=== PATIENT | female | born 1985 | race Caucasian/White ===

== ENCOUNTER 2020-06-05 08:27 | Emergency (ER) | payer MEDICAID, SELFPAY ==
[2020-06-05 08:30] VITALS: BP 112/67; PULSE 61; RESP 18; TEMP 35.3; O2SAT 99; BMI 35.5
--- NOTE | 2020-06-05 09:12 | ED.PSYCH ---
HPI - Psych General Chief Complaint: Psychiatric Symptoms Stated Complaint: si Time Seen by Provider: 06/05/20 09:10 Source: patient Mode of arrival: ambulatory Limitations: no limitations History of Present Illness HPI Narrative: Patient presents to the ED because she wants help. Patient states she has been feeling more depressed an anxious than usual. Patient states she has no reason to be depressed because she states she has everything she needs in life. Patient states in might be due to her having a new baby that is about 4-month-old. Patient states no actual suicide plan, but states she wants help and other day she woke up not wanting to be alive. Patient states she would not actually kill herself because she has young kids to live for. Patient states she has called [facility] and multiple times for help, but has been informed she is on the waiting list. Patient just wants outpatient therapist. Related Data Previous Rx's Medication Instructions Recorded hydroxyzine HCl 50 mg PO QID PRN #16 tab 06/05/20 nitrofurantoin monohyd/m-cryst 100 mg PO Q12H 7 Days #14 cap 06/05/20 [Macrobid] Allergies Allergy/AdvReac Type Severity Reaction Status Date / Time ibuprofen [From Motrin] AdvReac Unknown STOMACH Unverified 03/09/20 17:55 UPSET Review of Systems Review of Systems: Yes all other systems are reviewed and are negative Constitutional: Constitutional: Reports as per HPI and Reports no additional constitutional complaints Eyes: Eyes: Reports as per HPI and Reports no additional eye complaints ENT: Reports system reviewed and no additional complaints, except as documented and Reports as per HPI Cardiovascular: Cardiovascular: Reports as per HPI and Reports no additional cardiovascular complaints Respiratory: Respiratory: Reports as per HPI and Reports no additional respiratory complaints Gastrointestinal: Gastrointestinal: Reports as per HPI and Reports no additional gastrointestinal complaints Genitourinary: Genitourinary: Reports no additional female genitourinary complaints and Reports as per HPI Musculoskeletal: Musculoskeletal: Reports no additional musculoskeletal complaints and Reports as per HPI Neurologic: Reports system reviewed and no additional complaints, except as documented and Reports as per HPI Psychiatric: Psychiatric: Reports no additional psychiatric complaints, Reports as per HPI and Reports depression PMFSH Past Medical History Medical History ADD (attention deficit disorder) Asthma Social History Social History Alcohol intake: current Alcohol intake frequency: a few times a month Alcohol type: beer Smoking Status: Current every day smoker Smoked in Last 30 Days: Yes Use of substances other than those prescribed or required for medical reasons: No Advance Directives: No Advance Directives Information Provided: Yes Physical Exam Vital Signs: Vital Signs: Last Vital Signs Temp 98.4 F 06/05/20 09:16 Pulse 59 06/05/20 09:16 Resp 17 06/05/20 09:16 BP 114/68 06/05/20 09:16 Pulse Ox 97 06/05/20 09:16 Body Mass Index 35.5 Const: General: cooperative, healthy appearing, comfortable, no acute distress, well developed, alert, awake and Physically active Orientation/consciousness: patient oriented x3 HENMT: Head: Yes normal to inspection and Yes No palpable skull fracture present Eyes: General: appearance normal, both eyes and all related structures Neck: Neck: Yes normal visual inspection and Yes full ROM Chest: Chest palpation & inspection: normal inspection of the chest and normal palpation of entire chest wall Resp: Effort & Inspection: normal respiratory effort and able to speak in complete sentences Cardio: Jugular venous distension: no JVD Heart sounds: S1 normal heart sound present and S2 normal heart sound present GI: Inspection: Yes normal to inspection and No abdominal wall ecchymosis Palpation (GI): not firm, nontender, no guarding and not rigid : General: No CVA tenderness and Yes no CVA tenderness Back/Spine/Pelvis: Back: no CVA tenderness and No CVA tenderness Skin: General skin exam: no rashes or lesions noted Neuro: General: patient oriented x3, gait normal and CN's II-XI intact bilaterally Cranial nerves: Yes Bilaterally intact EOM present Extrem: General: Yes normal to inspection and Yes full ROM Psych: Appearance: grossly normal, well kempt and not disheveled Speech and movement: Normal speech and movement present Affect: normal affect Thought process: Normal thought process present Thought content: suicidality, no homicidality, no delusions and no hallucinations Insight: Good insight present (Psych) Course Course Course Narrative: Patient presently not suicidal but is seeking help. Patient will have labs drawn and have BHN evaluation. Patient herself states she takes Suboxone 8 sublingual twice a day. Patient states she did not take any today. Will give patient her dose. Reevaluation(s) Reevaluation #1: Patient was evaluated by care team consulted Felicia who also cooberates story that patient is not suicidal or homicidal. Patient has no plan to kill herself. patient just wanted outpatient therapy follow-up. Care consult Felicia organized outpatient therapist appointment for patient and and states patient is safe for discharge. Patient states she is not suicidal or homicidal and will follow up with outpatient therapists Time: 13:35 MDM - Psych MDM Narrative Medical decision making narrative: Depression Restraints Face to Face Assessment: Face to Face Assessment: Current Situation: After assessment of the patient, a review of the pertinent medical record and a discussion with nursing staff, I feel the patient requires a restrain intervention. Reaction To: [] Medical Condition: [] Behavioral State: [] Continued Need: [] Lab Data Result diagrams: 06/05/20 09:29 06/05/20 09:29 Labs: Lab Results 06/05/20 06/05/20 06/05/20 Range/Units 09:29 09:29 09:29 WBC 8.7 (4.8-10.8) X10*3/uL RBC 4.18 L (4.20-5.50) X10*6/uL Hgb 11.4 L (12.0-16.0) g/dl Hct 36.0 L (37-47) % MCV 86.1 (80-98) fL MCH 27.3 (27.0-33.0) pg MCHC 31.7 (31.0-35.0) g/dl RDW 15.0 (11.0-16.0) % Plt Count 387 (160-400) X10*3/uL MPV 10.2 (9.4-12.3) fL Immature Gran % (Auto) 0.3 (0.0-0.4) % Neut % (Auto) 72.2 (45-73) % Lymph % (Auto) 20.1 (20-40) % [place] % (Auto) 5.3 (2-11) % Eos % (Auto) 1.6 (0-4) % Baso % (Auto) 0.5 (0-2) % Lymph # (Auto) 1.8 (1.2-4.9) X10*3/uL [place] # (Auto) 0.5 (0.1-1.2) X10*3/uL Eos # (Auto) 0.1 (0.0-0.4) X10*3/uL Baso # (Auto) 0.0 (0.0-0.2) X10*3/uL Abs Immat Gran (auto) 0.03 (0.00-0.03) X10*3/uL Absolute Neuts (auto) 6.3 (2.0-8.3) X10*3/uL Absolute Nucleated RBC 0.000 (0.0-0.012) X10*3/uL Nucleated RBC % (auto) 0.0 (0.0-0.2) /100WBC PT 12.0 (10.8-13.0) SEC INR 1.0 (0.9-1.1) APTT 37.6 (24.1-38.0) SEC Sodium 141 (135-145) mmol/L Potassium 4.3 (3.3-5.1) mmol/l Chloride 105 (96-108) mmol/L Carbon Dioxide 30 H (22-29) mmol/L Anion Gap 10 L (12-20) BUN 8 L (9-16) mg/dL Creatinine 0.87 (0.5-1.4) mg/dL Estim Creat Clear Calc 109.6 Estimated GFR > 60 Random Glucose 109 (60-115) mg/dL Calcium 8.0 L (8.4-10.2) mg/dL Total Bilirubin 0.2 (0.0-1.0) mg/dL Direct Bilirubin < 0.2 (0.0-0.5) mg/dL AST 12 (5-31) U/L ALT 10 (0-31) U/L Alkaline Phosphatase 68 (39-117) U/L Total Protein 6.5 (6.5-8.0) g/dL Albumin 3.9 (3.5-5.0) g/dL Urine Color Urine Appearance Urine pH (5.0-8.0) Ur Specific [place] (1.005-1.025) Urine Protein (NEG-TRACE) MG/DL Urine Glucose (UA) (NEG) MG/DL Urine Ketones (NEG) MG/DL Urine Blood (NEG) Urine Nitrite Ur Leukocyte Esterase (NEG) Urine RBC (0) /HPF Urine WBC (0-4) /HPF Ur Squamous Epith Cells /LPF Urine Bacteria /LPF Urine Test (NEGATIVE) Urine Opiates Screen (Not Detect) Ur Barbiturates Screen (Not Detect) Ur Phencyclidine Scrn (Not Detect) Ur Amphetamines Screen (Not Detect) U Benzodiazepines Scrn (Not Detect) Urine Cocaine Screen (Not Detect) U Marijuana (THC) Screen (Not Detect) Ethyl Alcohol mg/dL 06/05/20 06/05/20 06/05/20 Range/Units 09:29 10:39 10:39 WBC (4.8-10.8) X10*3/uL RBC (4.20-5.50) X10*6/uL Hgb (12.0-16.0) g/dl Hct (37-47) % MCV (80-98) fL MCH (27.0-33.0) pg MCHC (31.0-35.0) g/dl RDW (11.0-16.0) % Plt Count (160-400) X10*3/uL MPV (9.4-12.3) fL Immature Gran % (Auto) (0.0-0.4) % Neut % (Auto) (45-73) % Lymph % (Auto) (20-40) % [place] % (Auto) (2-11) % Eos % (Auto) (0-4) % Baso % (Auto) (0-2) % Lymph # (Auto) (1.2-4.9) X10*3/uL [place] # (Auto) (0.1-1.2) X10*3/uL Eos # (Auto) (0.0-0.4) X10*3/uL Baso # (Auto) (0.0-0.2) X10*3/uL Abs Immat Gran (auto) (0.00-0.03) X10*3/uL Absolute Neuts (auto) (2.0-8.3) X10*3/uL Absolute Nucleated RBC (0.0-0.012) X10*3/uL Nucleated RBC % (auto) (0.0-0.2) /100WBC PT (10.8-13.0) SEC INR (0.9-1.1) APTT (24.1-38.0) SEC Sodium (135-145) mmol/L Potassium (3.3-5.1) mmol/l Chloride (96-108) mmol/L Carbon Dioxide (22-29) mmol/L Anion Gap (12-20) BUN (9-16) mg/dL Creatinine (0.5-1.4) mg/dL Estim Creat Clear Calc Estimated GFR Random Glucose (60-115) mg/dL Calcium (8.4-10.2) mg/dL Total Bilirubin (0.0-1.0) mg/dL Direct Bilirubin (0.0-0.5) mg/dL AST (5-31) U/L ALT (0-31) U/L Alkaline Phosphatase (39-117) U/L Total Protein (6.5-8.0) g/dL Albumin (3.5-5.0) g/dL Urine Color RED Urine Appearance TURBID Urine pH 8.0 (5.0-8.0) Ur Specific [place] 1.020 (1.005-1.025) Urine Protein 3+ H (NEG-TRACE) MG/DL Urine Glucose (UA) NEG (NEG) MG/DL Urine Ketones NEG (NEG) MG/DL Urine Blood 3+ H (NEG) Urine Nitrite TNP Ur Leukocyte Esterase 2+ H (NEG) Urine RBC TNTC H (0) /HPF Urine WBC 10-14 H (0-4) /HPF Ur Squamous Epith Cells 2+ /LPF Urine Bacteria NONE /LPF Urine Test NEGATIVE (NEGATIVE) Urine Opiates Screen Not Detected (Not Detect) Ur Barbiturates Screen Not Detected (Not Detect) Ur Phencyclidine Scrn Not Detected (Not Detect) Ur Amphetamines Screen POSITIVE H (Not Detect) U Benzodiazepines Scrn Not Detected (Not Detect) Urine Cocaine Screen Not Detected (Not Detect) U Marijuana (THC) Screen POSITIVE H (Not Detect) Ethyl Alcohol < 10 mg/dL Discharge Plan Discharge Clinical Impression: Depression, Acute anxiety Patient Disposition: Home, Self-Care Instructions: Urinary Tract Infection in Women (ED), Depression (ED), Anxiety (ED) Additional Instructions: Return to the ED for any suicidal/homicidal ideation, auditory/visual hallucinations, any physical complaints, or any other concerning symptoms. Prescriptions: New hydroxyzine HCl 50 mg tablet 50 mg PO QID PRN (Reason: anxiety) Qty: 16 RF: 0 nitrofurantoin monohyd/m-cryst [Macrobid] 100 mg capsule 100 mg PO Q12H 7 Days Qty: 14 RF: 0 Referrals: [facility] [Provider Group] - 2 days (Anxiety and depression. Outpatient therapist follow-up.) Ana Torres MD [Primary Care Provider] - 2 days (Patient has referral and appointment for outpatient therapist) Interventions: ED Discharge Assessment Last Done: 06/05/20 14:14 Discharge Date/Time: 06/05/20 14:30 Print Language: Armenian
[2020-06-05 09:16] VITALS: BP 114/68; PULSE 59; RESP 17; TEMP 36.9; O2SAT 97
[2020-06-05 09:35] LABS: MANUAL DIFF FLAG NO
[2020-06-05 09:36] LABS: Basophils Percent Auto 0.5 % (0-2); Eosinophils Absolute Auto 0.1 X10*3/uL (0.0-0.4); Eosinophils Percent Auto 1.6 % (0-4); Hemoglobin 11.4 g/dl (12.0-16.0); Imm Gran Abs Auto 0.03 X10*3/uL (0.00-0.03); Imm Gran Pct Auto 0.3 % (0.0-0.4); Lymphocytes Absolute Auto 1.8 X10*3/uL (1.2-4.9); Lymphocytes Percent Auto 20.1 % (20-40); Mean Corpuscular HGB Conc 31.7 g/dl (31.0-35.0); Mean Corpuscular Hemoglobin 27.3 pg (27.0-33.0); Mean Corpuscular Volume 86.1 fL (80-98); Mean Platelet Volume 10.2 fL (9.4-12.3); Monocytes Absolute Auto 0.5 X10*3/uL (0.1-1.2); Monocytes Percent Auto 5.3 % (2-11); Neutrophils Absolute Auto 6.3 X10*3/uL (2.0-8.3); Neutrophils Percent Auto 72.2 % (45-73); Platelet Count 387 X10*3/uL (160-400); Red Blood Count 4.18 X10*6/uL (4.20-5.50); White Blood Count 8.7 X10*3/uL (4.8-10.8)
[2020-06-05] MEDS: Buprenorphine/Naloxone 8/2 mg FILM 1 FILM SUBLINGUAL (09:43)
[2020-06-05 09:45] LABS: Partial Thromboplastin Time 37.6 SEC (24.1-38.0)
[2020-06-05 09:58] LABS: Ethanol < 10 mg/dL
[2020-06-05 10:01] LABS: Alanine Aminotransferase 10 U/L (0-31); Albumin Level 3.9 g/dL (3.5-5.0); Alkaline Phosphatase 68 U/L (39-117); Anion Gap 10 (12-20); Aspartate Amino Transferase 12 U/L (5-31); Bilirubin Direct < 0.2 mg/dL (0.0-0.5); Bilirubin Total 0.2 mg/dL (0.0-1.0); Blood Urea Nitrogen 8 mg/dL (9-16); Carbon Dioxide 30 mmol/L (22-29); Chloride 105 mmol/L (96-108); Creatinine Clr Calc Pharmacy 109.6; Estimated Glomerular Filt Rate > 60; Glucose Random 109 mg/dL (60-115); Potassium 4.3 mmol/l (3.3-5.1); Sodium 141 mmol/L (135-145); Total Protein 6.5 g/dL (6.5-8.0)
[2020-06-05 11:08] LABS: Glucose Urine UA NEG (NEG); Urine Blood 3+ (NEG); Urine Ketones NEG (NEG); Urine Protein 3+ MG/DL (NEG-TRACE)
[2020-06-05 11:15] LABS: Appearance Urine TURBID; Color Urine RED
[2020-06-05 11:21] LABS: Leukocyte Esterase Urine 2+ (NEG)
[2020-06-05 11:26] LABS: Amphetamine Screen Urine POSITIVE (Not Detect); Barbiturates, Urine Not Detected (Not Detect); Benzodiazepines Screen Urine Not Detected (Not Detect); Cannabinoid Screen Urine POSITIVE (Not Detect); Cocaine Screen Urine Not Detected (Not Detect); Opiate Screen Urine Not Detected (Not Detect); Phencyclidine Screen Urine Not Detected (Not Detect); RBC Urine TNTC /HPF (0); Squamous Epithelial Cell Urine 2+ /LPF
[2020-06-05 11:27] LABS: UPreg QC Valid YES; Urine Pregnancy NEGATIVE (NEGATIVE)
--- NOTE | 2020-06-05 12:05 | PC.NURSE ---
PT asked when she would be seen by N because she has children at home and her works night shift manager. CARE team was called to ask about available services the PT may receive from home.
--- NOTE | 2020-06-05 13:10 | MHC.CARE ---
CARE Team met with who presented to [facility] ED reporting depression. Pt reports she presented to [facility] ED hoping it would help expedite the process of seeing a therapist. Pt reports she has everything in her life to be happy about however has been feeling more depressed than usual and attributing it to depression. Pt reports some mood irritability and feels she?s lashing out to her . Pt denies suicidal ideation plan, intent or means. Pt denies HI/AH/VH. Pt reported, ?I could never hurt myself I have my kids to live for, I just need someone to talk to?. Pt reports a supportive who is encouraging her to speak with a therapist and Pt reports he has been encouraging her for ?months?. Pt reports she is currently on waitlist at [facility]. Pt reports last week reaching out to her PCP who started her on Citalopram. Pt denies history of psychiatric IPLOC hospitalization, sucidial ideation or attempts. Pt reports history of therapy a few years ago. Pt verbalizing feeling safe to go home, would like assistance obtaining a therapy appt. CARE Team communicated with ED provider who is in agreement with Pt being discharged home to follow up with therapy and PRN for anxiety medication.
--- NOTE | 2020-06-05 13:10 | MHC.CARE ---
CARE Team left with THOMAS Charles for therapy intake and awaiting a call back.
--- NOTE | 2020-06-05 13:56 | MHC.CARE ---
Pt provided information for [facility], [facility], CARE Team contact information and [facility]. CARE Team spoke with THOMAS Charles who will follow up with Pt directly this afternoon regarding intake appt. Pt in agreemnet with plan of care.
== END 2020-06-05 14:30 | disposition home or self-care (01) ==
PROVIDERS: Physician Assistant; Emergency Provider Emergency Medicine; PCP Family Medicine
DX: F32.9 Major depressive disorder, single episode, unspecified (principal); F41.9 Anxiety disorder, unspecified; N39.0 Urinary tract infection, site not specified; F17.200 Nicotine dependence, unspecified, uncomplicated; F11.20 Opioid dependence, uncomplicated
CPT/HCPCS: 36415; 80053; 80076; 80307; 80320; 81001; 81003; 81025; 82248; 85025; 85610; 85730; 87086; 87147; 99284; J0574

== ENCOUNTER 2020-06-06 09:23 | Emergency (ER) | payer MEDICAID, SELFPAY ==
[2020-06-06 09:28] VITALS: BP 136/79; PULSE 80; RESP 16; TEMP 36.6; O2SAT 100; BMI 35.5
--- NOTE | 2020-06-06 10:06 | ED_ITS ---
HPI - Female Genitourinary General Chief complaint: Vaginal Bleeding <Tonya Salazar NP - Last Filed: 06/06/20 14:09> Stated complaint: dizziness <Tonya Salazar NP - Last Filed: 06/06/20 14:09> Time Seen by Provider: 06/06/20 10:02 <Tonya Salazar NP - Last Filed: 06/06/20 14:09> Source: patient <Tonya Salazar NP - Last Filed: 06/06/20 14:09> Mode of arrival: ambulatory <Tonya Salazar NP - Last Filed: 06/06/20 14:09> Limitations: no limitations <Tonya Salazar NP - Last Filed: 06/06/20 14:09> History of Present Illness HPI Narrative: 35-year-old female with a past medical history of asthma, endometriosis, ovarian cysts, ADHD here with vaginal bleeding, lower abdominal cramping and dizziness with position changes x3 days. The patient tells me she has heavy bleeding changing 1 pad per 1-2 hrs with clots. She is 4 months s/p c/s delivery and tubal ligation. Her LMP was 2 weeks ago. She has had 2 normal cycles since delivery. Now more heavy and painful. Followed by [facility]. <Tonya Salazar NP - Last Filed: 06/06/20 14:09> MD elicited complaint: vaginal bleeding <Tonya Salazar NP - Last Filed: 06/06/20 14:09> Onset (ago): day(s) (3 days) <Tonya Salazar NP - Last Filed: 06/06/20 14:09> Related Data Home medications: Previous Rx's Medication Instructions Recorded hydroxyzine HCl 50 mg PO QID PRN #16 tab 06/05/20 nitrofurantoin monohyd/m-cryst 100 mg PO Q12H 7 Days #14 cap 06/05/20 [Macrobid] <Tonya Salazar NP - Last Filed: 06/06/20 14:09> Allergies/Adverse reactions: Allergies Allergy/AdvReac Type Severity Reaction Status Date / Time ibuprofen [From Motrin] AdvReac Unknown STOMACH Unverified 03/09/20 17:55 UPSET <Tonya Salazar NP - Last Filed: 06/06/20 14:09> Review of Systems Review of Systems: Yes all other systems are reviewed and are negative <Tonya Salazar NP - Last Filed: 06/06/20 14:09> Constitutional: Constitutional: Reports no additional constitutional compla ints, Denies body ache(s), Denies chills, Denies fever(s), Denies headache(s) and Denies weakness <Tonya Salazar NP - Last Filed: 06/06/20 14:09> Eyes: Eyes: Reports no additional eye complaints and Denies change in vision <Tonya Salazar NP - Last Filed: 06/06/20 14:09> ENT: Reports system reviewed and no additional complaints, except as documented, Reports dizziness, Denies headache(s), Denies nasal congestion, Denies nasal discharge and Denies neck pain <Tonya Salazar NP - Last Filed: 06/06/20 14:09> Cardiovascular: Cardiovascular: Reports no additional cardiovascular complaints, Denies chest pain, Denies leg edema and Denies dyspnea <Tonya Salazar NP - Last Filed: 06/06/20 14:09> Respiratory: Respiratory: Reports no additional respiratory complaints, Denies cough and Denies dyspnea <Tonya Salazar NP - Last Filed: 06/06/20 14:09> Gastrointestinal: Gastrointestinal: Reports no additional gastrointestinal complaints, Denies abdominal pain (lower abdominal cramping), Denies diarrhea, Denies nausea and Denies vomiting <Tonya Salazar NP - Last Filed: 06/06/20 14:09> Genitourinary: Genitourinary: Reports no additional female genitourinary complaints, Reports abnormal vaginal bleeding and Denies urinary incontinence <Tonya Salazar NP - Last Filed: 06/06/20 14:09> Musculoskeletal: Musculoskeletal: Reports no additional musculoskeletal complaints, Denies back pain, Denies arthralgias, Denies joint swelling, Denies neck pain, Denies numbness and Denies tingling <Tonya Salazar NP - Last Filed: 06/06/20 14:09> Integumentary/Breasts: Skin/Breast: Reports system reviewed and no additional complaints, except as docu and Denies rash <Tonya Salazar NP - Last Filed: 06/06/20 14:09> Neurologic: Reports system reviewed and no additional complaints, except as documented, Denies Abnormal speech present, Reports dizziness, Denies headache(s), Denies numbness, Denies tingling and Denies weakness <Tonya Salazar NP - Last Filed: 06/06/20 14:09> [facility] Past Medical History Attestation statement: The following information was validated with the patient. <Tonya Salazar NP - Last Filed: 06/06/20 14:09> Source: old records reviewed and nursing notes reviewed <Tonya Salazar NP - Last Filed: 06/06/20 14:09> Medical History: Medical History ADD (attention deficit disorder) Asthma <Tonya Salazar NP - Last Filed: 06/06/20 14:09> Social History Social History: Social History Alcohol intake: never Smoking Status: Current every day smoker Use of substances other than those prescribed or required for medical reasons: No Advance Directives: No Advance Directives Information Provided: No <Tonya Salazar NP - Last Filed: 06/06/20 14:09> Physical Exam Vital Signs: Vital Signs: Last Vital Signs Temp 98 F 06/06/20 13:47 Pulse 88 06/06/20 13:47 Resp 16 06/06/20 13:47 BP 129/60 06/06/20 13:47 Pulse Ox 98 06/06/20 13:47 Body Mass Index 35.5 <Tonya Salazar NP - Last Filed: 06/06/20 14:09> Vital Signs: Last Vital Signs Temp 98 F 06/06/20 13:47 Pulse 88 06/06/20 13:47 Resp 16 06/06/20 13:47 BP 129/60 06/06/20 13:47 Pulse Ox 98 06/06/20 13:47 Body Mass Index 35.5 <Nicholas Kim MD - Last Filed: 06/18/20 09:18> Const: General: cooperative, healthy appearing, comfortable and no acute distress <Tonya Salazar NP - Last Filed: 06/06/20 14:09> Orientation/consciousness: patient oriented x3 <Tonya Salazar NP - Last Filed: 06/06/20 14:09> Limitations: no limitations <Tonya Salazar NP - Last Filed: 06/06/20 14:09> HENMT: Head: Yes normal to inspection <Tonya Salazar NP - Last Filed: 1 08/07/19 14:09> Ears: hearing grossly normal bilaterally <Tonya Salazar NP - Last Filed: 06/06/20 14:09> General nose exam: Normal external nose present <Tonya Salazar NP - Last Filed: 06/06/20 14:09> Face and sinus: Yes normal facial exam <Tonya Salazar NP - Last Filed: 06/06/20 14:09> Mouth: Normal oral and palatal mucosa present <Tonya Salazar NP - Last Filed: 06/06/20 14:09> Throat: Yes posterior oropharynx normal <Tonya Salazar NP - Last Filed: 06/06/20 14:09> Eyes: General: appearance normal, both eyes and all related structures <Tonya Salazar NP - Last Filed: 06/06/20 14:09> Pupils: Equal, round and reactive pupils present <Tonya Salazar NP - Last Filed: 06/06/20 14:09> Neck: Neck: Yes normal visual inspection <Tonya Salazar NP - Last Filed: 06/06/20 14:09> Chest: Chest palpation & inspection: normal inspection of the chest < Tonya Salazar NP - Last Filed: 06/06/20 14:09> Resp: Effort & Inspection: normal respiratory effort <Tonya Salazar NP - Last Filed: 06/06/20 14:09> Auscultation: clear to auscultation bilaterally <Tonya Salazar NP - Last Filed: 06/06/20 14:09> Cardio: Rate: regular rate <Tonya Salazar NP - Last Filed: 06/06/20 14:09> Rhythm: regular rhythm <oTnya Salazar NP - Last Filed: 06/06/20 14:09> Peripheral pulses: Peripheral pulses 2+ throughout <Tonya Salazar NP - Last Filed: 06/06/20 14:09> GI: Inspection: Yes normal to inspection <Tonya Salazar NP - Last Filed: 06/06/20 14:09> Palpation (GI): Soft to palpation and Tenderness to palpation present (GI) (mild bilateral lower pelvic tenderness, no rebound or guarding. ) <Tonya Salazar NP - Last Filed: 06/06/20 14:09> Auscultation: normal bowel sounds <Tonya Salazar NP - Last Filed: 0 14:09> : Other: Allison record press supervisor present <Tonya Salazar NP - Last Filed: 06/06/20 14:09> External Female Exam: normal external appearance <Tonya Salazar NP - Last Filed: 06/06/20 14:09> Speculum Exam - Vagina: vaginal bleeding (Small to moderate amount, no clot) <Tonya Salazar NP - Last Filed: 06/06/20 14:09> Speculum Exam - Cervix: normal appearance of the cervix <Tonya Salazar NP - Last Filed: 06/06/20 14:09> Bimanual exam- vagina & uterus: normal bimanual exam <Tonya Salazar NP - Last Filed: 06/06/20 14:09> Bimanual Exam- Adnexa, other: normal adnexae <Tonya Salazar NP - Last Filed: 06/06/20 14:09> OB/external & speculum: vaginal bleeding (Small to moderate amount, no clot) <Tonya Salazar NP - Last Filed: 06/06/20 14:09> Back/Spine/Pelvis: Thoracic/Lumbar Spine: thoracic and lumbar spine normal to inspection <Tonya Salazar NP - Last Filed: 06/06/20 14:09> Skin: General skin exam: no rashes or lesions noted <Tonya Salazar NP - Last Filed: 06/06/20 14:09> Neuro: General: patient oriented x3, no focal motor deficits and normal sensation to monofilament <Tonya Salazar NP - Last Filed: 06/06/20 14:09> Cranial nerves: Yes Equal, round and reactive pupils present <Tonya Salazar NP - Last Filed: 06/06/20 14:09> Cognition (Neuro): normal cognition <Tonya Salazar NP - Last Filed: 06/06/20 14:09> Speech: No Abnormal speech present <Tonya Salazar NP - Last Filed: 06/06/20 14:09> Gait exam (Neuro): Normal gait present <Tonya Salazar NP - Last Filed: 06/06/20 14:09> Motor exam (neuro): 5/5 motor strength present throughout <Tonya Salazar NP - Last Filed: 06/06/20 14:09> Extrem: General: Yes normal to inspection <Tonya Salazar NP - Last Filed: 06/06/20 14:09> Course Course Course Narrative: 35-year-old female here with vaginal bleeding and abdominal cramping for the last 3 days. Also complaining of dizziness with position changes. Stable vital signs. Will need labs, pelvic exam, orthostatics, UA, . 1355-ultrasound unremarkable. UA and urine negative. Hemoglobin stable and unchanged from previous. Orthostatics negative. Pelvic exam shows a small amount of bleeding in the vaginal canal. Patient changed her pad once while being in the emergency department for 4 hours. She was medicated with her Suboxone as she missed her clinic appointment this morning. Likely dysfunctional uterine bleeding. Discussed follow-up closely with her traffic operations engineer outpatient. Reviewed worrisome signs and symptoms and when to return to the emergency department. Comfortable with discharge home. <Tonya Salazar NP - Last Filed: 06/06/20 14:09> I have reviewed the chart <Nicholas Kim MD - Last Filed: 06/18/20 09:18> MDM - Female Genitourinary Medical Records Attestation: I reviewed the patient's medical records. <Tonya Salazar NP - Last Filed: 06/06/20 14:09> Lab Data Attestation: I reviewed the patient's lab results. <Tonya Salazar NP - Last Filed: 06/06/20 14:09> Result diagrams: : 06/06/20 10:36 06/06/20 10:35 <Tonya Salazar NP - Last Filed: 06/06/20 14:09> Labs: Lab Results 06/06/20 06/06/20 06/06/20 Range/Units 10:35 10:36 10:36 WBC 9.3 (4.8-10.8) X10*3/uL RBC 4.31 (4.20-5.50) X10*6/uL Hgb 11.9 L (12.0-16.0) g/dl Hct 37.3 (37-47) % MCV 86.5 (80-98) fL MCH 27.6 (27.0-33.0) pg MCHC 31.9 (31.0-35.0) g/dl RDW 14.9 (11.0-16.0) % Plt Count 408 H (160-400) X10*3/uL MPV 10.1 (9.4-12.3) fL Immature Gran % (Auto) 1.0 H (0.0-0.4) % Neut % (Auto) 67.4 (45-73) % Lymph % (Auto) 23.8 (20-40) % [place] % (Auto) 6.0 (2-11) % Eos % (Auto) 1.5 (0-4) % Baso % (Auto) 0.3 (0-2) % Lymph # (Auto) 2.2 (1.2-4.9) X10*3/uL [place] # (Auto) 0.6 (0.1-1.2) X10*3/uL Eos # (Auto) 0.1 (0.0-0.4) X10*3/uL Baso # (Auto) 0.0 (0.0-0.2) X10*3/uL Abs Immat Gran (auto) 0.09 H (0.00-0.03) X10*3/uL Absolute Neuts (auto) 6.3 (2.0-8.3) X10*3/uL Absolute Nucleated RBC 0.000 (0.0-0.012) X10*3/uL Nucleated RBC % (auto) 0.0 (0.0-0.2) /100WBC Hold Blue Top SEE NOTE Sodium 140 (135-145) mmol/L Potassium 3.8 (3.3-5.1) mmol/l Chloride 104 (96-108) mmol/L Carbon Dioxide 28 (22-29) mmol/L Anion Gap 12 (12-20) BUN 9 (9-16) mg/dL Creatinine 0.92 (0.5-1.4) mg/dL Estim Creat Clear Calc 103.6 Estimated GFR > 60 Random Glucose 103 (60-115) mg/dL Calcium 8.5 D (8.4-10.2) mg/dL Total Bilirubin 0.2 (0.0-1.0) mg/dL Direct Bilirubin < 0.2 (0.0-0.5) mg/dL AST 11 (5-31) U/L ALT 11 (0-31) U/L Alkaline Phosphatase 70 (39-117) U/L Total Protein 6.8 (6.5-8.0) g/dL Albumin 4.1 (3.5-5.0) g/dL Urine Color Urine Appearance Urine pH (5.0-8.0) Ur Specific [place] (1.005-1.025) Urine Protein (NEG-TRACE) MG/DL Urine Glucose (UA) (NEG) MG/DL Urine Ketones (NEG) MG/DL Urine Blood (NEG) Urine Nitrite (NEG) Ur Leukocyte Esterase (NEG) Urine RBC (0) /HPF Urine WBC (0-4) /HPF Ur Squamous Epith Cells /LPF Urine Bacteria /LPF Urine Test (NEGATIVE) 06/06/20 Range/Units 11:30 WBC (4.8-10.8) X10*3/uL RBC (4.20-5.50) X10*6/uL Hgb (12.0-16.0) g/dl Hct (37-47) % MCV (80-98) fL MCH (27.0-33.0) pg MCHC (31.0-35.0) g/dl RDW (11.0-16.0) % Plt Count (160-400) X10*3/uL MPV (9.4-12.3) fL Immature Gran % (Auto) (0.0-0.4) % Neut % (Auto) (45-73) % Lymph % (Auto) (20-40) % [place] % (Auto) (2-11) % Eos % (Auto) (0-4) % Baso % (Auto) (0-2) % Lymph # (Auto) (1.2-4.9) X10*3/uL [place] # (Auto) (0.1-1.2) X10*3/uL Eos # (Auto) (0.0-0.4) X10*3/uL Baso # (Auto) (0.0-0.2) X10*3/uL Abs Immat Gran (auto) (0.00-0.03) X10*3/uL Absolute Neuts (auto) (2.0-8.3) X10*3/uL Absolute Nucleated RBC (0.0-0.012) X10*3/uL Nucleated RBC % (auto) (0.0-0.2) /100WBC Hold Blue Top Sodium (135-145) mmol/L Potassium (3.3-5.1) mmol/l Chloride (96-108) mmol/L Carbon Dioxide (22-29) mmol/L Anion Gap (12-20) BUN (9-16) mg/dL Creatinine (0.5-1.4) mg/dL Estim Creat Clear Calc Estimated GFR Random Glucose (60-115) mg/dL Calcium (8.4-10.2) mg/dL Total Bilirubin (0.0-1.0) mg/dL Direct Bilirubin (0.0-0.5) mg/dL AST (5-31) U/L ALT (0-31) U/L Alkaline Phosphatase (39-117) U/L Total Protein (6.5-8.0) g/dL Albumin (3.5-5.0) g/dL Urine Color YELLOW Urine Appearance HAZY Urine pH 7.5 (5.0-8.0) Ur Specific [place] 1.020 (1.005-1.025) Urine Protein NEG (NEG-TRACE) MG/DL Urine Glucose (UA) NEG (NEG) MG/DL Urine Ketones NEG (NEG) MG/DL Urine Blood 3+ H (NEG) Urine Nitrite NEG (NEG) Ur Leukocyte Esterase NEG (NEG) Urine RBC 15-29 H (0) /HPF Urine WBC 0 (0-4) /HPF Ur Squamous Epith Cells 1+ /LPF Urine Bacteria NONE /LPF Urine Test NEGATIVE (NEGATIVE) <Tonya Salazar NP - Last Filed: 06/06/20 14:09> Lab Results 06/06/20 06/06/20 06/06/20 Range/Units 10:35 10:36 10:36 WBC 9.3 (4.8-10.8) X10*3/uL RBC 4.31 (4.20-5.50) X10*6/uL Hgb 11.9 L (12.0-16.0) g/dl Hct 37.3 (37-47) % MCV 86.5 (80-98) fL MCH 27.6 (27.0-33.0) pg MCHC 31.9 (31.0-35.0) g/dl RDW 14.9 (11.0-16.0) % Plt Count 408 H (160-400) X10*3/uL MPV 10.1 (9.4-12.3) fL Immature Gran % (Auto) 1.0 H (0.0-0.4) % Neut % (Auto) 67.4 (45-73) % Lymph % (Auto) 23.8 (20-40) % [place] % (Auto) 6.0 (2-11) % Eos % (Auto) 1.5 (0-4) % Baso % (Auto) 0.3 (0-2) % Lymph # (Auto) 2.2 (1.2-4.9) X10*3/uL [place] # (Auto) 0.6 (0.1-1.2) X10*3/uL Eos # (Auto) 0.1 (0.0-0.4) X10*3/uL Baso # (Auto) 0.0 (0.0-0.2) X10*3/uL Abs Immat Gran (auto) 0.09 H (0.00-0.03) X10*3/uL Absolute Neuts (auto) 6.3 (2.0-8.3) X10*3/uL Absolute Nucleated RBC 0.000 (0.0-0.012) X10*3/uL Nucleated RBC % (auto) 0.0 (0.0-0.2) /100WBC Hold Blue Top SEE NOTE Sodium 140 (135-145) mmol/L Potassium 3.8 (3.3-5.1) mmol/l Chloride 104 (96-108) mmol/L Carbon Dioxide 28 (22-29) mmol/L Anion Gap 12 (12-20) BUN 9 (9-16) mg/dL Creatinine 0.92 (0.5-1.4) mg/dL Estim Creat Clear Calc 103.6 Estimated GFR > 60 Random Glucose 103 (60-115) mg/dL Calcium 8.5 D (8.4-10.2) mg/dL Total Bilirubin 0.2 (0.0-1.0) mg/dL Direct Bilirubin < 0.2 (0.0-0.5) mg/dL AST 11 (5-31) U/L ALT 11 (0-31) U/L Alkaline Phosphatase 70 (39-117) U/L Total Protein 6.8 (6.5-8.0) g/dL Albumin 4.1 (3.5-5.0) g/dL Urine Color Urine Appearance Urine pH (5.0-8.0) Ur Specific [place] (1.005-1.025) Urine Protein (NEG-TRACE) MG/DL Urine Glucose (UA) (NEG) MG/DL Urine Ketones (NEG) MG/DL Urine Blood (NEG) Urine Nitrite (NEG) Ur Leukocyte Esterase (NEG) Urine RBC (0) /HPF Urine WBC (0-4) /HPF Ur Squamous Epith Cells /LPF Urine Bacteria /LPF Urine Test (NEGATIVE) 06/06/20 Range/Units 11:30 WBC (4.8-10.8) X10*3/uL RBC (4.20-5.50) X10*6/uL Hgb (12.0-16.0) g/dl Hct (37-47) % MCV (80-98) fL MCH (27.0-33.0) pg MCHC (31.0-35.0) g/dl RDW (11.0-16.0) % Plt Count (160-400) X10*3/uL MPV (9.4-12.3) fL Immature Gran % (Auto) (0.0-0.4) % Neut % (Auto) (45-73) % Lymph % (Auto) (20-40) % [place] % (Auto) (2-11) % Eos % (Auto) (0-4) % Baso % (Auto) (0-2) % Lymph # (Auto) (1.2-4.9) X10*3/uL [place] # (Auto) (0.1-1.2) X10*3/uL Eos # (Auto) (0.0-0.4) X10*3/uL Baso # (Auto) (0.0-0.2) X10*3/uL Abs Immat Gran (auto) (0.00-0.03) X10*3/uL Absolute Neuts (auto) (2.0-8.3) X10*3/uL Absolute Nucleated RBC (0.0-0.012) X10*3/uL Nucleated RBC % (auto) (0.0-0.2) /100WBC Hold Blue Top Sodium (135-145) mmol/L Potassium (3.3-5.1) mmol/l Chloride (96-108) mmol/L Carbon Dioxide (22-29) mmol/L Anion Gap (12-20) BUN (9-16) mg/dL Creatinine (0.5-1.4) mg/dL Estim Creat Clear Calc Estimated GFR Random Glucose (60-115) mg/dL Calcium (8.4-10.2) mg/dL Total Bilirubin (0.0-1.0) mg/dL Direct Bilirubin (0.0-0.5) mg/dL AST (5-31) U/L ALT (0-31) U/L Alkaline Phosphatase (39-117) U/L Total Protein (6.5-8.0) g/dL Albumin (3.5-5.0) g/dL Urine Color YELLOW Urine Appearance HAZY Urine pH 7.5 (5.0-8.0) Ur Specific [place] 1.020 (1.005-1.025) Urine Protein NEG (NEG-TRACE) MG/DL Urine Glucose (UA) NEG (NEG) MG/DL Urine Ketones NEG (NEG) MG/DL Urine Blood 3+ H (NEG) Urine Nitrite NEG (NEG) Ur Leukocyte Esterase NEG (NEG) Urine RBC 15-29 H (0) /HPF Urine WBC 0 (0-4) /HPF Ur Squamous Epith Cells 1+ /LPF Urine Bacteria NONE /LPF Urine Test NEGATIVE (NEGATIVE) <Nicholas Kim MD - Last Filed: 06/18/20 09:18> Imaging Data pelvic us: Attestation: I personally reviewed and interpreted this imaging study as follows: <Tonya Salazar NP - Last Filed: 06/06/20 14:09> Radiologist's impression: EXAMINATION: US PELVIS ULTRASOUND CLINICAL INFORMATION: 35-year-old with vaginal bleeding and pain. 4 months . COMPARISON: Pelvic ultrasound 09/08/2010 TECHNIQUE: Ultrasound of the pelvis is performed using both transabdominal and transvaginal transducers along with Doppler. Transvaginal imaging is performed due to inadequate visualization transabdominally. FINDINGS: Uterus: The uterus is anteverted and measures 11.7 x 4.7 x 5.7 cm. The double wall endometrial thickness is normal at 8 mm. Endometrium is uniform in echogenicity. There is no visible mass or abnormal color flow. The uterus is smooth in contour and has normal myometrial echogenicity. There is a focal peripheral hyperechoic focus lower anterior uterine segment with posterior shadowing and measuring just under 5 mm which may represent an old scar. There are some small nabothian cysts in the cervix. Adnexa: Both ovaries are visualized. There is normal color flow to the adnexa. There is no ovarian torsion. There is no pelvic ascites or fluid collection. Right ovary measures 3.1 x 1.4 x 2.2 cm. Left ovary measures 2.7 x 1.1 x 1.7 cm. US/US pelvic complete IMPRESSION: 1. Uterus: Normal endometrial thickness and echogenicity. Small peripheral hyperechoic focus lower anterior uterine segment, likely old scar. 2. Adnexa: Ovaries unremarkable. No adnexal mass or pelvic ascites. <Tonya Salazar NP - Last Filed: 06/06/20 14:09> Discharge Plan Discharge Clinical Impression: Dysfunctional uterine bleeding <Tonya Salazar NP - Last Filed: 06/06/20 14:09> Patient Disposition: Home, Self-Care <Tonya Salazar NP - Last Filed: 06/06/20 14:09> Instructions: Dysfunctional Uterine Bleeding (ED) <Tonya Salazar NP - Last Filed: 06/06/20 14:09> Additional Instructions: Call your OB today for an appointment in the next few days <Tonya Salazar NP - Last Filed: 06/06/20 14:09> Prescriptions: No Action hydroxyzine HCl 50 mg tablet 50 mg PO QID PRN (Reason: anxiety) Qty: 16 RF: 0 nitrofurantoin monohyd/m-cryst [Macrobid] 100 mg capsule 100 mg PO Q12H 7 Days Qty: 14 RF: 0 <Tonya Salazar NP - Last Filed: 06/06/20 14:09> Referrals: Ana Torres MD [Primary Care Provider] - 2 days <Tonya Salazar NP - Last Filed: 06/06/20 14:09> Interventions: ED Discharge Assessment Last Done: 06/06/20 13:50 <Tonya Salazar NP - Last Filed: 06/06/20 14:09> Discharge Date/Time: 06/06/20 13:51 <Tonya Salazar NP - Last Filed: 06/06/20 14:09>
[2020-06-06 10:38] VITALS: BP 107/35; PULSE 64
[2020-06-06 10:39] VITALS: BP 117/60; PULSE 68
[2020-06-06 10:41] VITALS: BP 129/60; PULSE 82
[2020-06-06 10:43] LABS: Basophils Percent Auto 0.3 % (0-2); Eosinophils Absolute Auto 0.1 X10*3/uL (0.0-0.4); Eosinophils Percent Auto 1.5 % (0-4); Hematocrit 37.3 % (37-47); Hemoglobin 11.9 g/dl (12.0-16.0); Imm Gran Abs Auto 0.09 X10*3/uL (0.00-0.03); Lymphocytes Absolute Auto 2.2 X10*3/uL (1.2-4.9); Lymphocytes Percent Auto 23.8 % (20-40); MANUAL DIFF FLAG NO; Mean Corpuscular HGB Conc 31.9 g/dl (31.0-35.0); Mean Corpuscular Hemoglobin 27.6 pg (27.0-33.0); Mean Corpuscular Volume 86.5 fL (80-98); Mean Platelet Volume 10.1 fL (9.4-12.3); Monocytes Absolute Auto 0.6 X10*3/uL (0.1-1.2); Neutrophils Absolute Auto 6.3 X10*3/uL (2.0-8.3); Neutrophils Percent Auto 67.4 % (45-73); Platelet Count 408 X10*3/uL (160-400); Red Blood Count 4.31 X10*6/uL (4.20-5.50); Red Cell Distribution Width 14.9 % (11.0-16.0); White Blood Count 9.3 X10*3/uL (4.8-10.8)
[2020-06-06] MEDS: Buprenorphine/Naloxone 8/2 mg FILM 1 FILM SUBLINGUAL ×2 (10:44→13:41)
[2020-06-06 11:11] LABS: Alanine Aminotransferase 11 U/L (0-31); Albumin Level 4.1 g/dL (3.5-5.0); Alkaline Phosphatase 70 U/L (39-117); Anion Gap 12 (12-20); Aspartate Amino Transferase 11 U/L (5-31); Bilirubin Direct < 0.2 mg/dL (0.0-0.5); Bilirubin Total 0.2 mg/dL (0.0-1.0); Blood Urea Nitrogen 9 mg/dL (9-16); Calcium 8.5 mg/dL (8.4-10.2); Carbon Dioxide 28 mmol/L (22-29); Chloride 104 mmol/L (96-108); Creatinine Clr Calc Pharmacy 103.6; Estimated Glomerular Filt Rate > 60; Glucose Random 103 mg/dL (60-115); Potassium 3.8 mmol/l (3.3-5.1); Sodium 140 mmol/L (135-145); Total Protein 6.8 g/dL (6.5-8.0)
[2020-06-06 11:55] LABS: Glucose Urine UA NEG (NEG); Leukocyte Esterase Urine NEG (NEG); Nitrite Urine NEG (NEG); PH 7.5 (5.0-8.0); UPreg QC Valid YES; Urine Blood 3+ (NEG); Urine Ketones NEG (NEG); Urine Pregnancy NEGATIVE (NEGATIVE); Urine Protein NEG (NEG-TRACE)
[2020-06-06 11:56] LABS: Appearance Urine HAZY; Color Urine YELLOW
[2020-06-06 12:04] LABS: Squamous Epithelial Cell Urine 1+ /LPF; WBC Urine 0 /HPF (0-4)
--- NOTE | 2020-06-06 12:06 | US_ITS ---
EXAMINATION: US PELVIS ULTRASOUND CLINICAL INFORMATION: 35-year-old with vaginal bleeding and pain. 4 months . COMPARISON: Pelvic ultrasound 09/08/2010 TECHNIQUE: Ultrasound of the pelvis is performed using both transabdominal and transvaginal transducers along with Doppler. Transvaginal imaging is performed due to inadequate visualization transabdominally. FINDINGS: Uterus: The uterus is anteverted and measures 11.7 x 4.7 x 5.7 cm. The double wall endometrial thickness is normal at 8 mm. Endometrium is uniform in echogenicity. There is no visible mass or abnormal color flow. The uterus is smooth in contour and has normal myometrial echogenicity. There is a focal peripheral hyperechoic focus lower anterior uterine segment with posterior shadowing and measuring just under 5 mm which may represent an old scar. There are some small nabothian cysts in the cervix. Adnexa: Both ovaries are visualized. There is normal color flow to the adnexa. There is no ovarian torsion. There is no pelvic ascites or fluid collection. Right ovary measures 3.1 x 1.4 x 2.2 cm. Left ovary measures 2.7 x 1.1 x 1.7 cm. US/US pelvic complete IMPRESSION: 1. Uterus: Normal endometrial thickness and echogenicity. Small peripheral hyperechoic focus lower anterior uterine segment, likely old scar. 2. Adnexa: Ovaries unremarkable. No adnexal mass or pelvic ascites.
--- NOTE | 2020-06-06 12:07 | US_ITS ---
EXAMINATION: US PELVIS ULTRASOUND CLINICAL INFORMATION: 35-year-old with vaginal bleeding and pain. 4 months . COMPARISON: Pelvic ultrasound 09/08/2010 TECHNIQUE: Ultrasound of the pelvis is performed using both transabdominal and transvaginal transducers along with Doppler. Transvaginal imaging is performed due to inadequate visualization transabdominally. FINDINGS: Uterus: The uterus is anteverted and measures 11.7 x 4.7 x 5.7 cm. The double wall endometrial thickness is normal at 8 mm. Endometrium is uniform in echogenicity. There is no visible mass or abnormal color flow. The uterus is smooth in contour and has normal myometrial echogenicity. There is a focal peripheral hyperechoic focus lower anterior uterine segment with posterior shadowing and measuring just under 5 mm which may represent an old scar. There are some small nabothian cysts in the cervix. Adnexa: Both ovaries are visualized. There is normal color flow to the adnexa. There is no ovarian torsion. There is no pelvic ascites or fluid collection. Right ovary measures 3.1 x 1.4 x 2.2 cm. Left ovary measures 2.7 x 1.1 x 1.7 cm. US/US transvaginal IMPRESSION: 1. Uterus: Normal endometrial thickness and echogenicity. Small peripheral hyperechoic focus lower anterior uterine segment, likely old scar. 2. Adnexa: Ovaries unremarkable. No adnexal mass or pelvic ascites.
[2020-06-06 13:45] VITALS: BP 129/60; PULSE 88; RESP 16; O2SAT 98
--- NOTE | 2020-06-06 13:46 | PC.NURSE ---
pt states understanding of discharge plan, states she will follow with PCP as needed.
[2020-06-06 13:47] VITALS: BP 129/60; PULSE 88; RESP 16; TEMP 36.6; O2SAT 98
== END 2020-06-06 13:51 | disposition home or self-care (01) ==
PROVIDERS: Nurse Practitioner Family; Emergency Provider Emergency Medicine; PCP Family Medicine
DX: N93.8 Other specified abnormal uterine and vaginal bleeding (principal); R42 Dizziness and giddiness; F17.200 Nicotine dependence, unspecified, uncomplicated; Z71.6 Tobacco abuse counseling; Z79.899 Other long term (current) drug therapy
CPT/HCPCS: 36415; 76830; 76856; 80048; 80076; 81001; 81025; 85025; 99284; J0574